=== PATIENT | female | born 1985 | race Caucasian/White ===

== ENCOUNTER 2017-06-17 12:49 | Emergency (ER) | payer OTHER ==
--- NOTE | 2017-06-17 13:10 | ED PDOC ---
HPI: Abdomen Time Seen by Provider: 06/17/17 13:01 Chief Complaint (Nursing): Abdominal Pain Chief Complaint (Provider): Abdominal Pain History Per: Patient History/Exam Limitations: no limitations Onset/Duration Of Symptoms: Days (x14) Current Symptoms Are (Timing): Still Present Additional Complaint(s): David Tony is a 31 year old female presenting to the ED for an evaluation of epigastric pain, burning intermittently occurring for 2 weeks prior to arrival. She denies nausea, vomiting, diarrhea, fever, or dysuria. PMD: Non H Provider Past Medical History Reviewed: Historical Data, Nursing Documentation, Vital Signs Vital Signs: Last Vital Signs Temp 99.0 F 06/17/17 12:54 Pulse 82 06/17/17 12:54 Resp 16 06/17/17 12:54 BP 120/71 06/17/17 12:54 Pulse Ox 100 06/17/17 13:12 - Medical History PMH: No Chronic Diseases - Family History Family History: States: Unknown Family Hx - Home Medications Home Medications: Ambulatory Orders Medication Instructions Recorded Famotidine [Pepcid] 20 mg PO Q12 #20 tab 06/17/17 - Allergies Allergies/Adverse Reactions: Allergies Allergy/AdvReac Type Severity Reaction Status Date / Time No Known Allergies Allergy Verified 06/17/17 12:59 Review of Systems ROS Statement: Except As Marked, All Systems Reviewed And Found Negative Constitutional: Negative for: Fever Gastrointestinal: Positive for: Abdominal Pain (epigastric pain burning intermittently). Negative for: Nausea, Vomiting, Diarrhea Genitourinary Female: Negative for: Dysuria Physical Exam - Reviewed Nursing Documentation Reviewed: Yes Vital Signs Reviewed: Yes - Physical Exam Appears: Positive for: Non-toxic, No Acute Distress Head Exam: Positive for: ATRAUMATIC, NORMOCEPHALIC Skin: Positive for: Normal Color, Warm, Dry Eye Exam: Positive for: Normal appearance, EOMI Neck: Positive for: Normal, Painless ROM Cardiovascular/Chest: Positive for: Regular Rate, Rhythm. Negative for: Murmur Respiratory: Positive for: Normal Breath Sounds. Negative for: Respiratory Distress Gastrointestinal/Abdominal: Positive for: Soft, Tenderness (mild epigastric tenderness; no lower abdominal tenderness ) Extremity: Positive for: Normal ROM (full ROM ). Negative for: Swelling Neurologic/Psych: Positive for: Alert, Oriented - Laboratory Results Result Diagrams: 06/17/17 13:38 06/17/17 13:38 - ECG O2 Sat by Pulse Oximetry: 100 (RA) Pulse Ox Interpretation: Normal Medical Decision Making Medical Decision Making: Time: 13:01 Impression: Abdominal Pain Plan: * CMP * CBC (With Differential) * Bentyl 10 mg PO * NS 1,000 ml IV 100 mls/hr * Pepcid 20 mg IVP * Reevaluation Scribe Attestation: Documented by Shanna Chadwick, acting as a scribe for Cedric Godinez MD. Provider Scribe Attestation: All medical record entries made by the Scribe were at my direction and personally dictated by me. I have reviewed the chart and agree that the record accurately reflects my personal performance of the history, physical exam, medical decision making, and the department course for this patient. I have also personally directed, reviewed, and agree with the discharge instructions and disposition. Disposition - Clinical Impression Clinical Impression: Gastritis - Patient ED Disposition Is Patient to be Admitted: No Counseled Patient/Family Regarding: Studies Performed, Diagnosis, Need For Followup, Rx Given - Disposition Referrals: [facility] [Outside] Disposition: Routine/Home Disposition Time: 14:25 Condition: FAIR Prescriptions: Famotidine [Pepcid] 20 mg PO Q12 #20 tab Instructions: Gastritis (ED) Forms: [employer] (Azeri)
[2017-06-17] MEDS: Sodium Chloride 0.9% 1,000 ML IV STA (13:30)
[2017-06-17 13:46] LABS: BASO % 0.3 % (0.0-2.0); EOS # 0.1 K/uL (0.0-0.7); EOS % 1.2 % (0.0-4.0); HEMATOCRIT 33.3 % (34.0-47.0); LYMPH # 2.2 K/uL (1.0-4.3); LYMPH % 33.5 % (20.0-40.0); MEAN CELL VOLUME 83.7 fl (81.0-99.0); MEAN CORPUSCULAR HEMOGLOBIN 27.4 pg (27.0-31.0); MEAN CORPUSCULAR HGB CONC 32.7 g/dL (33.0-37.0); MEAN PLATELET VOLUME 9.7 fl (7.2-11.7); MONO # 0.4 K/uL (0.0-0.8); MONO % 6.7 % (0.0-10.0); NEUT # 3.8 K/uL (1.8-7.0); NEUT % 58.3 % (50.0-75.0); RED CELL DISTRIBUTION WIDTH 14.8 % (11.5-14.5); WHITE BLOOD COUNT 6.5 K/uL (4.8-10.8)
[2017-06-17 13:51] LABS: ALB/GLOB RATIO 1.3 (1.0-2.1); ALKALINE PHOSPHATASE 38 U/L (38-126); ALT/SGPT 32 U/L (9-52); AST/SGOT 22 U/L (14-36); BILIRUBIN,TOTAL 1.1 mg/dl (0.2-1.3); BLOOD UREA NITROGEN 9 mg/dl (7-17); CALCIUM 9.2 mg/dL (8.4-10.2); CARBON DIOXIDE 21 mmol/L (22-30); CHLORIDE 107 mmol/L (98-107); GFR AFRICAN-AMERICAN > 60; GLUCOSE,RANDOM 109 mg/dL (65-105); POTASSIUM 4.1 MMOL/L (3.6-5.0); SODIUM 138 mmol/l (132-148); TOTAL PROTEIN 8.1 G/DL (6.3-8.2)
[2017-06-17 14:45] VITALS: BP 128/78; PULSE 78; RESP 19; TEMP 97.6; O2SAT 98
== END 2017-06-17 14:44 | disposition home or self-care (01) ==
LOC: H.ER 12:49
DX: K29.70 Gastritis, unspecified, without bleeding (principal)
CPT/HCPCS: 80053; 81025; 85025; 96374; 99282; J7040

== ENCOUNTER 2017-10-25 22:19 | Emergency (ER) | payer OTHER ==
[2017-10-25 22:28] VITALS: BP 156/77; PULSE 91; RESP 16; TEMP 98.5; O2SAT 100
[2017-10-25] MEDS ORDERED: Sodium Chloride 0.9% 1,000 ML IV STA (22:35)
[2017-10-25 23:13] LABS: BASO # 0.1 K/uL (0.0-0.2); BASO % 0.7 % (0.0-2.0); EOS # 0.2 K/uL (0.0-0.7); EOS % 1.9 % (0.0-4.0); HEMOGLOBIN 10.4 g/dL (12.0-16.0); LYMPH # 3.3 K/uL (1.0-4.3); LYMPH % 36.7 % (20.0-40.0); MEAN CELL VOLUME 83.6 fl (81.0-99.0); MEAN CORPUSCULAR HEMOGLOBIN 26.9 pg (27.0-31.0); MEAN CORPUSCULAR HGB CONC 32.2 g/dL (33.0-37.0); MEAN PLATELET VOLUME 9.6 fl (7.2-11.7); MONO # 0.6 K/uL (0.0-0.8); NEUT # 4.9 K/uL (1.8-7.0); NEUT % 53.7 % (50.0-75.0); RBC 3.87 Mil/uL (3.80-5.20); RED CELL DISTRIBUTION WIDTH 15.3 % (11.5-14.5)
[2017-10-25 23:19] LABS: SQUAMOUS EPITHIAL < 1 /hpf (0-5); URINE BACTERIA RARE (<OCC); URINE BILIRUBIN NEGATIVE (NEGATIVE); URINE BLOOD NEGATIVE (NEGATIVE); URINE CLARITY CLEAR (Clear); URINE COLOR COLORLESS (YELLOW); URINE GLUCOSE (UA) NEG (Normal); URINE LEUKOCYTE ESTERASE NEG Leu/uL (Negative); URINE NITRATE NEGATIVE (NEGATIVE); URINE PROTEIN NEGATIVE (NEGATIVE); URINE UROBILINOGEN 0.2-1.0 mg/dL (0.2-1.0)
[2017-10-25 23:22] LABS: ALB/GLOB RATIO 1.2 (1.0-2.1); ALBUMIN 4.3 g/dL (3.5-5.0); ALT/SGPT 34 U/L (9-52); AST/SGOT 18 U/L (14-36); BLOOD UREA NITROGEN 7 mg/dl (7-17); CALCIUM 9.7 mg/dL (8.4-10.2); GFR AFRICAN-AMERICAN > 60; GFR NON-AFRICAN AMERICAN > 60; LIPASE 106 U/L (23-300)
--- NOTE | 2017-10-26 00:07 | ED PDOC ---
HPI: Abdomen Time Seen by Provider: 10/25/17 22:29 Chief Complaint (Nursing): Abdominal Pain Chief Complaint (Provider): Abdominal Pain History Per: Patient History/Exam Limitations: no limitations Onset/Duration Of Symptoms: Intermittent Episodes, Other (x1 month) Outside of [place] travel?: No Current Symptoms Are (Timing): Still Present Location Of Pain/Discomfort: Epigastric Quality Of Discomfort: "Pain" Associated Symptoms: Loss Of Appetite. denies: Nausea, Vomiting, Diarrhea, Chest Pain Additional Complaint(s): 31 year old female presents to ED with complaints of intermittent epigastric pain x1 month and has no past medical history. Patient states that she saw her PCP a while ago and was prescribed a liquid medicine that helped. Notes that since the medication finished the pain became worse, and significantly increased in intensity today, prompting ED visit. (-) nausea, vomiting, diarrhea , fever, SOB, cough, urinary symptoms, or chest pain. (+) decreased appetite. Of note, patient states she is 2-3 days late for her menstrual cycle and has not done a home test. PCP: Dr. Roach Past Medical History Reviewed: Historical Data, Nursing Documentation, Vital Signs Vital Signs: Last Vital Signs Temp 98.5 F 10/25/17 22:25 Pulse 91 H 10/25/17 22:25 Resp 16 10/25/17 22:25 BP 156/77 H 10/25/17 22:25 Pulse Ox 100 10/26/17 00:49 - Medical History PMH: No Chronic Diseases - Surgical History Other surgeries: left ear surgery - Family History Family History: States: Unknown Family Hx - Social History Current smoker - smoking cessation education provided: No Ex-Smoker (has not smoked in the last 12 months): No Alcohol: None Drugs: Denies - Home Medications Home Medications: Ambulatory Orders Medication Instructions Recorded Famotidine [Pepcid] 20 mg PO Q12 #20 tab 06/17/17 Famotidine [Pepcid] 20 mg PO Q12 #14 tab 10/26/17 - Allergies Allergies/Adverse Reactions: Allergies Allergy/AdvReac Type Severity Reaction Status Date / Time No Known Allergies Allergy Verified 10/25/17 22:24 Review of Systems ROS Statement: Except As Marked, All Systems Reviewed And Found Negative Constitutional: Negative for: Fever Cardiovascular: Negative for: Chest Pain Gastrointestinal: Positive for: Abdominal Pain (epigastric pain), Other ((+) decreased appetite). Negative for: Nausea, Vomiting, Diarrhea Genitourinary Female: Negative for: Dysuria, Frequency, Incontinence, Hematuria Physical Exam - Reviewed Nursing Documentation Reviewed: Yes Vital Signs Reviewed: Yes - Physical Exam Appears: Positive for: Non-toxic, No Acute Distress Skin: Positive for: Normal Color, Warm, Dry Eye Exam: Positive for: Normal appearance ENT: Positive for: Normal ENT Inspection Cardiovascular/Chest: Positive for: Regular Rate, Rhythm Respiratory: Positive for: Normal Breath Sounds. Negative for: Respiratory Distress Gastrointestinal/Abdominal: Positive for: Soft, Tenderness (epigastric tenderness). Negative for: Normal Exam Back: Positive for: Normal Inspection Extremity: Positive for: Normal ROM. Negative for: Deformity Neurologic/Psych: Positive for: Alert, Oriented. Negative for: Motor/Sensory Deficits - Laboratory Results Result Diagrams: 10/25/17 23:08 10/25/17 23:08 - ECG O2 Sat by Pulse Oximetry: 100 (RA) Pulse Ox Interpretation: Normal Medical Decision Making Medical Decision Makin Initial impression: epigastric pain Initial plan: * Labs * Lipase * UPreg * NS IV * Pepcid 20mg IV * Toradol 15mg IV * UA * US ABDOMEN LIMITED * Re-eval 2250 UPreg: positive * BETA-HCG QUANT * US OB TRANSVAGINAL 0024 US ABD FINDINGS: Liver: Liver is unremarkable. There is hepatopedal flow in the main portal vein. Gallbladder: Gallbladder is partially distended with no stones, sludge or wall thickening. Common bile duct: Common bile duct measures 2 mm in diameter Pancreas: Pancreas is unremarkable. Right kidney: Right kidney is partially obscured by overlying bowel gas. Visualized portions unremarkable. Aorta: Visualized portions of the aorta and inferior vena cava are unremarkable. IMPRESSION: No gallstones or ductal dilatation Patient was not tender over the gallbladder 0037 US TRANSVAGINAL FINDINGS: Gestation: There is a small cystic structure in the endometrium. Gestational sac has mean diameter 2.7 mm. pole and yolk sac are not yet visible. Uterus: Uterus measures approximately 7.4 x 4.2 x 5.67 cm. Cervix measures approximately 4 cm in length. Endometrium is thickened and heterogeneous. Endometrium measures approximate 2.3 cm in width. Ovaries: Right ovary measures approximately 2.3 x 1.7 x 2.2 cm. Left ovary measures approximately 2.9 x 1.8 x 2.7 cm.There are multiple small follicles. There is intraovarian blood flow. Free fluid: There is no free fluid. IMPRESSION: Findings suggest intrauterine gestation too early to date Followup suggested to document development of a pole Labs reviewed, no clinically significant abnormalities. Patient reports improvement in symptoms and was informed of status. Patient was advised to follow up with [facility] and [facility] for care. Dx gastritis, abdominal pain, and Scribe Attestation: Documented by Berta Bolanos acting as a scribe for Gurwinder Roldan MD. Scribe Attestation: All medical record entries made by the Scribe were at my direction and personally dictated by me. I have reviewed the chart and agree that the record accurately reflects my personal performance of the history, physical exam, medical decision making, and the department course for this patient. I have also personally directed, reviewed, and agree with the discharge instructions and disposition. Disposition - Clinical Impression Clinical Impression: Abdominal pain during , Gastritis - Disposition Referrals: [facility] [Outside] Disposition: Routine/Home Disposition Time: 00:50 Condition: STABLE Prescriptions: Famotidine [Pepcid] 20 mg PO Q12 #14 tab Instructions: Gastritis (ED), Abdominal Pain in (ED) Forms: [employer] (Maltese) - POA Present On Arrival: None
--- NOTE | 2017-10-26 00:25 | US ---
EXAM: US Abdomen Limited, Right Upper Quadrant EXAM DATE/TIME: 10/25/2017 10:46 PM CLINICAL HISTORY: 31 years old, female; Pain; Abdominal pain; Epigastric; ; Additional info: Ruq study; patient is not NPO TECHNIQUE: Real-time ultrasound of the right upper quadrant with image documentation. COMPARISON: There are no prior studies for comparison. FINDINGS: Liver: Liver is unremarkable. There is hepatopedal flow in the main portal vein. Gallbladder: Gallbladder is partially distended with no stones, sludge or wall thickening. Common bile duct: Common bile duct measures 2 mm in diameter Pancreas: Pancreas is unremarkable. Right kidney: Right kidney is partially obscured by overlying bowel gas. Visualized portions unremarkable. Aorta: Visualized portions of the aorta and inferior vena cava are unremarkable. IMPRESSION: No gallstones or ductal dilatation Patient was not tender over the gallbladder
--- NOTE | 2017-10-26 00:37 | US ---
EXAM: US , Transvaginal EXAM DATE/TIME: 10/25/2017 10:51 PM CLINICAL HISTORY: 31 years old, female; Pain; Other: Abd pain; Gestational age or lmp: 09/22/17; ; Additional info: Abd pain in preg TECHNIQUE: Real-time transvaginal obstetrical ultrasound of the maternal pelvis and a first trimester with image documentation. Transvaginal imaging was used for better evaluation of the fetus and adnexa. COMPARISON: There are no prior studies for comparison. FINDINGS: Gestation: There is a small cystic structure in the endometrium. Gestational sac has mean diameter 2.7 mm. pole and yolk sac are not yet visible. Uterus: Uterus measures approximately 7.4 x 4.2 x 5.67 cm. Cervix measures approximately 4 cm in length. Endometrium is thickened and heterogeneous. Endometrium measures approximate 2.3 cm in width. Ovaries: Right ovary measures approximately 2.3 x 1.7 x 2.2 cm. Left ovary measures approximately 2.9 x 1.8 x 2.7 cm.There are multiple small follicles. There is intraovarian blood flow. Free fluid: There is no free fluid. IMPRESSION: Findings suggest intrauterine gestation too early to date Followup suggested to document development of a pole
== END 2017-10-26 01:16 | disposition home or self-care (01) ==
LOC: H.ER 22:19
DX: K29.70 Gastritis, unspecified, without bleeding (principal); R10.13 Epigastric pain; Z87.891 Personal history of nicotine dependence; Z33.1 Pregnant state, incidental
CPT/HCPCS: 76705; 76817; 80053; 81003; 81025; 83690; 84702; 85025; 99283; J7040

== ENCOUNTER 2018-01-16 12:03 | Inpatient (IN) | payer MEDICAID, SELFPAY ==
[2018-01-16 12:03] VITALS: BMI 23.6
[2018-01-16] MEDS ORDERED: Sodium Chloride 0.9% 1,000 ML IV STA (12:24)
--- NOTE | 2018-01-16 12:24 | ED PDOC ---
HPI: General Adult Time Seen by Provider: 01/16/18 12:18 Chief Complaint (Nursing): Abnormal Labs Chief Complaint (Provider): abnormal labs History Per: Patient Additional Complaint(s): 32-year-old female status post miscarriage one month ago presents with persistent vaginal bleeding ongoing for 1 month. [facility] and was told that her hemoglobin was low and she was instructed to come to ED. patient has been feeling dizzy and lightheaded for the past week. She denies any chest pain, shortness of breath or dyspnea on exertion. No fever or chills, no dysuria. PMD: Dr. Roach is [place] Past Medical History Reviewed: Historical Data, Nursing Documentation, Vital Signs Vital Signs: Last Vital Signs Temp 98.2 F 01/16/18 16:18 Pulse 74 01/16/18 16:18 Resp 16 01/16/18 16:18 BP 135/69 01/16/18 12:08 Pulse Ox 100 01/16/18 16:18 - Medical History PMH: No Chronic Diseases - Family History Family History: States: No Known Family Hx - Living Arrangements Living Arrangements: With Family - Social History Current smoker - smoking cessation education provided: No Alcohol: None Drugs: Denies - Home Medications Home Medications: Ambulatory Orders Medication Instructions Recorded No Known Home Med 01/16/18 - Allergies Allergies/Adverse Reactions: Allergies Allergy/AdvReac Type Severity Reaction Status Date / Time No Known Allergies Allergy Verified 12/17/17 05:07 Review of Systems ROS Statement: Except As Marked, All Systems Reviewed And Found Negative Constitutional: Negative for: Fever Cardiovascular: Negative for: Chest Pain Respiratory: Negative for: Shortness of Breath Gastrointestinal: Positive for: Abdominal Pain. Negative for: Nausea, Vomiting , Diarrhea Genitourinary Female: Positive for: Vaginal Bleeding, Pelvic Pain. Negative for : Dysuria Neurological: Positive for: Dizziness. Negative for: Headache Physical Exam - Reviewed Nursing Documentation Reviewed: Yes Vital Signs Reviewed: Yes - Physical Exam Appears: Positive for: Well, Non-toxic, No Acute Distress Skin: Negative for: Rash Eye Exam: Positive for: Normal appearance Cardiovascular/Chest: Positive for: Regular Rate, Rhythm Respiratory: Positive for: Normal Breath Sounds Gastrointestinal/Abdominal: Positive for: Soft. Negative for: Tenderness, Distended, Guarding, Rebound Pelvic Exam: Positive for: Other (mild bleeding noted from closed cervical os, no CMT) Extremity: Positive for: Normal ROM Neurologic/Psych: Positive for: Alert, Oriented - Laboratory Results Result Diagrams: 01/16/18 12:35 01/16/18 12:35 Urine POC: Negative Urine dip results: Positive for: Leukocyte Esterase (small), Blood (large). Negative for: Nitrate, Ketones, Glucose, Bilirubin, Protein - ECG Interpretation Of ECG: Sinus tachycardia 106 bpm, reviewed by PMD and ED attending O2 Sat by Pulse Oximetry: 100 Pulse Ox Interpretation: Normal - Other Rad TV US X-Ray: Read By Radiologist X-Ray Interpretation: see below CXR X-Ray: Interpreted by Me, Viewed By Me X-Ray Interpretation: no acute finding Medical Decision Making Medical Decision Makin32 year old female with vaginal bleeding Plan: Urine dip and test Beta quant CBC CMP PT/PTT CXR EKG IVF US: FINDINGS: UTERUS: Measures 5.2 x 6.1 x 9.1 cm. Normal in size and appearance. No fibroid or other mass lesion seen. ENDOMETRIUM: Measures 20.8 thickened irregular endometrium. Focal vascularity within the endometrial echo complex. No discrete gestational sac, yolk sac or pole identified. CERVIX : No cervical abnormality identified. RIGHT OVARY: Measures 2.5 x 2.9 x 3.2 cm. No solid mass. Normal flow. Simple cyst 1.9 x 2.4 x 2.4 cm, LEFT OVARY: Measures 1.2 x 1.3 x 2 cm. No solid mass. Normal flow. FREE FLUID: No significant free fluid noted. OTHER FINDINGS: None. IMPRESSION: Markedly thickened heterogeneous endometrium with focal areas of increased vascularity. Simple cyst right adnexa. Hemoglobin is 6.8 - 2 units packed red blood cells ordered along with type and cross. Patient consented for transfusion. UTI noted, 1 gram IV rocephin ordered Case was d/w [employer] condominium manager, Dr. Lynch, ordered and patient was admitted to Dr. Lynch's service. Patient is aware of and agrees with admission. Disposition - Clinical Impression Clinical Impression: Vaginal bleeding, Anemia - Patient ED Disposition Is Patient to be Admitted: Yes - Disposition Disposition Time: 13:58 Condition: FAIR - Pt Status Changed To: Hospital Disposition Of: Inpatient - Admit Certification Admit to Inpatient:: After my assessment, the patient will require hospitalization for at least two midnights. This is because of the severity of symptoms shown, intensity of services needed, and/or the medical risk in this patient being treated as an outpatient. - POA Present On Arrival: None Results - Lab Results Lab Results: 01/16/18 01/16/18 01/16/18 12:35 12:35 12:35 WBC 9.4 RBC 2.73 L Hgb 6.8 L Hct 21.1 L MCV 77.3 L D MCH 24.8 L MCHC 32.2 L RDW 18.5 H Plt Count 283 MPV 9.1 Neut % (Auto) 75.9 H Lymph % (Auto) 17.8 L Coleman % (Auto) 5.7 Eos % (Auto) 0.3 Baso % (Auto) 0.3 Neut # (Auto) 7.1 H Lymph # (Auto) 1.7 Coleman # (Auto) 0.5 Eos # (Auto) 0.0 Baso # (Auto) 0.0 PT 12.5 INR 1.1 APTT 31.9 Sodium 142 Potassium 3.9 Chloride 107 Carbon Dioxide 20 L Anion Gap 19 BUN 7 Creatinine 0.6 L Est GFR ( Amer) > 60 Est GFR (Non-Af Amer) > 60 Random Glucose 105 Calcium 9.4 Total Bilirubin 0.6 AST 30 ALT 33 Alkaline Phosphatase 46 Total Protein 8.6 H Albumin 4.5 Globulin 4.1 H Albumin/Globulin Ratio 1.1
[2018-01-16 13:16] LABS: BASO % 0.3 % (0.0-2.0); EOS % 0.3 % (0.0-4.0); HEMOGLOBIN 6.8 g/dL (12.0-16.0); LYMPH # 1.7 K/uL (1.0-4.3); LYMPH % 17.8 % (20.0-40.0); MEAN CELL VOLUME 77.3 fl (81.0-99.0); MEAN CORPUSCULAR HEMOGLOBIN 24.8 pg (27.0-31.0); MEAN CORPUSCULAR HGB CONC 32.2 g/dL (33.0-37.0); MEAN PLATELET VOLUME 9.1 fl (7.2-11.7); MONO # 0.5 K/uL (0.0-0.8); MONO % 5.7 % (0.0-10.0); NEUT # 7.1 K/uL (1.8-7.0); NEUT % 75.9 % (50.0-75.0); RBC 2.73 Mil/uL (3.80-5.20); RED CELL DISTRIBUTION WIDTH 18.5 % (11.5-14.5); WHITE BLOOD COUNT 9.4 K/uL (4.8-10.8)
[2018-01-16 13:27] LABS: ALB/GLOB RATIO 1.1 (1.0-2.1); ALBUMIN 4.5 g/dL (3.5-5.0); ALT/SGPT 33 U/L (9-52); AST/SGOT 30 U/L (14-36); BLOOD UREA NITROGEN 7 mg/dl (7-17); CALCIUM 9.4 mg/dL (8.4-10.2); GFR AFRICAN-AMERICAN > 60; GFR NON-AFRICAN AMERICAN > 60
[2018-01-16 13:46] LABS: INR 1.1 (0.9-1.2); PARTIAL THROMBOPLASTIN TIME 31.9 Seconds (25.6-37.1); PROTHROMBIN TIME 12.5 Seconds (9.8-13.1)
--- NOTE | 2018-01-16 14:48 | RAD ---
HISTORY: clearance COMPARISON: No prior. TECHNIQUE: Chest PA and lateral FINDINGS: LUNGS: No active pulmonary disease. PLEURA: No significant pleural effusion identified. No pneumothorax apparent. CARDIOVASCULAR: Normal. OSSEOUS STRUCTURES: No significant abnormalities. VISUALIZED UPPER ABDOMEN: Normal. OTHER FINDINGS: None. IMPRESSION: No active disease.
[2018-01-16 15:13] LABS: SQUAMOUS EPITHIAL 1 /hpf (0-5); URINE BACTERIA RARE (<OCC); URINE BILIRUBIN NEGATIVE (NEGATIVE); URINE BLOOD LARGE (NEGATIVE); URINE CLARITY CLEAR (Clear); URINE COLOR STRAW (YELLOW); URINE GLUCOSE (UA) NEG (Normal); URINE LEUKOCYTE ESTERASE MOD Leu/uL (Negative); URINE PROTEIN NEGATIVE (NEGATIVE); URINE UROBILINOGEN 0.2-1.0 mg/dL (0.2-1.0)
[2018-01-16] MEDS ORDERED: cefTRIAXone (Rocephin) 1 gm Inj ONE (16:05)
--- NOTE | 2018-01-16 16:14 | US ---
HISTORY: miscarriage 1 month ago, persistent bleeding COMPARISON: 10/25/2017, pelvic ultrasound TECHNIQUE: Transvaginal only. Real -time technique with 2D, duplex and color Doppler FINDINGS: UTERUS: Measures 5.2 x 6.1 x 9.1 cm. Normal in size and appearance. No fibroid or other mass lesion seen. ENDOMETRIUM: Measures 20.8 thickened irregular endometrium. Focal vascularity within the endometrial echo complex. No discrete gestational sac, yolk sac or pole identified. CERVIX: No cervical abnormality identified. RIGHT OVARY: Measures 2.5 x 2.9 x 3.2 cm. No solid mass. Normal flow. Simple cyst 1.9 x 2.4 x 2.4 cm LEFT OVARY: Measures 1.2 x 1.3 x 2 cm. No solid mass. Normal flow. FREE FLUID: No significant free fluid noted. OTHER FINDINGS: None. IMPRESSION: Markedly thickened heterogeneous endometrium with focal areas of increased vascularity. Simple cyst right adnexa.
[2018-01-16] MEDS ORDERED: Influenza Vaccine 18yr & older 0.5 ML/45 MCG SYR IM ONE (21:00)
--- NOTE | 2018-01-16 22:32 | CP.PCM.HP ---
History of Present Illness - History of Present Illness History of Present Illness: CC: vaginal bleeding HPI: 32 YO with hx of recent SAB @ approximately 11 wks IUP (by LMP 09/20/17 ). Since her SAB, pt states that she continued to have vaginal bleeding, initially the bleeding decreased but subsequently increased and has continued. Pt states that since the miscarriage, she has used approximately 4-5 pads a day , usually the pads are moderately soaked. Has occasional abdominal cramping pain , not in any pain currently. Denies chest pain, dyspnea, n/v/d/c, chills and fevers. No hx of bleeding disorders. ObHx: 2 full term, NVD GYNHx: regular menstruation, every month. PMH: denies SurgH: Surgery for L ear infection FH: denies SH: , denies ETOH, smoking and illicit drug use Meds: tylenol PRN Allergies: NKDA Present on Admission - Present on Admission Any Indicators Present on Admission: No Review of Systems - Constitutional Constitutional: absent: Chills, Headache - EENT Eyes: absent: Blurred Vision - Cardiovascular Cardiovascular: Palpitations (before admission ). absent: Chest Pain, Syncope - Respiratory Respiratory: absent: Cough, Dyspnea - Gastrointestinal Gastrointestinal: Abdominal Pain (abdominal soreness). absent: Constipation, Diarrhea - Neurological Neurological: absent: Dizziness, Headaches, Syncope - Hematologic/Lymphatic Hematologic: absent: Easy Bleeding Past Patient History - Infectious Disease Hx of Infectious Diseases: None - Past Medical History & Family History Past Medical History?: Yes - Past Social History Smoking Status: Never Smoked Alcohol: None Drugs: Denies Home Situation {Lives}: With Family - CARDIAC Hx Cardiac Disorders: No - PULMONARY Hx Respiratory Disorders: No - NEUROLOGICAL Hx Neurological Disorder: No - HEENT Hx HEENT Problems: No - RENAL Hx Chronic Kidney Disease: No Hx Dialysis: No - ENDOCRINE/METABOLIC Hx Endocrine Disorders: No - HEMATOLOGICAL/ONCOLOGICAL Hx Blood Disorders: No Hx AIDS: No Hx Human Immunodeficiency Virus (HIV): No - INTEGUMENTARY Hx Dermatological Problems: No - MUSCULOSKELETAL/RHEUMATOLOGICAL Hx Musculoskeletal Disorders: No Hx Falls: No - GASTROINTESTINAL Hx Gastrointestinal Disorders: No - GENITOURINARY/GYNECOLOGICAL Hx Genitourinary Disorders: No - PSYCHIATRIC Hx Psychophysiologic Disorder: No Hx Substance Use: No - SURGICAL HISTORY Hx Surgeries: Yes Other/Comment: LEFT EAR - ANESTHESIA Hx Anesthesia: Yes Hx Anesthesia Reactions: No Hx Malignant Hyperthermia: No Has any member of the family had a problem w/ anesthesia?: No Meds Allergies/Adverse Reactions: Allergies Allergy/AdvReac Type Severity Reaction Status Date / Time No Known Allergies Allergy Verified 12/17/17 05:07 Physical Exam - Constitutional Appears: Well, Non-toxic, No Acute Distress - Head Exam Head Exam: ATRAUMATIC, NORMOCEPHALIC Additional comments: Looks mildly pale - Eye Exam Eye Exam: EOMI - ENT Exam ENT Exam: Mucous Membranes Moist - Respiratory Exam Respiratory Exam: Clear to Auscultation Bilateral, NORMAL BREATHING PATTERN - Cardiovascular Exam Cardiovascular Exam: REGULAR RHYTHM, +S1, +S2. absent: Tachycardia - GI/Abdominal Exam GI & Abdominal Exam: Normal Bowel Sounds, Soft. absent: Tenderness Additional comments: Uterus is below the Umbilicus; NT, firm. - Exam External exam: NORMAL EXTERNAL EXAM Bimanual exam: NORMAL BIMANUAL EXAM. absent: Adenexal Mass, Cervical Motion Tendernes, Uterine Tenderness Additional comments: Cervix is closed - Extremities Exam Extremities exam: Positive for: full ROM, normal inspection. Negative for: pedal edema - Neurological Exam Neurological exam: Alert, CN II-XII Intact, Oriented x3 - Psychiatric Exam Psychiatric exam: Normal Affect, Normal Mood - Skin Skin Exam: Dry, Intact, Normal Color, Warm Results - Vital Signs Recent Vital Signs: Last Vital Signs Temp 98.8 F 01/16/18 19:35 Pulse 82 01/16/18 20:36 Resp 20 01/16/18 19:35 BP 108/70 01/16/18 19:35 Pulse Ox 100 01/16/18 19:35 - Labs Result Diagrams: 01/16/18 12:35 01/16/18 12:35 Labs: Laboratory Results - last 24 hr 01/16/18 01/16/18 01/16/18 12:35 12:35 12:35 WBC 9.4 RBC 2.73 L Hgb 6.8 L Hct 21.1 L MCV 77.3 L D MCH 24.8 L MCHC 32.2 L RDW 18.5 H Plt Count 283 MPV 9.1 Neut % (Auto) 75.9 H Lymph % (Auto) 17.8 L [place] % (Auto) 5.7 Eos % (Auto) 0.3 Baso % (Auto) 0.3 Neut # (Auto) 7.1 H Lymph # (Auto) 1.7 [place] # (Auto) 0.5 Eos # (Auto) 0.0 Baso # (Auto) 0.0 PT 12.5 INR 1.1 APTT 31.9 Sodium 142 Potassium 3.9 Chloride 107 Carbon Dioxide 20 L Anion Gap 19 BUN 7 Creatinine 0.6 L Est GFR ( Amer) > 60 Est GFR (Non-Af Amer) > 60 Random Glucose 105 Calcium 9.4 Total Bilirubin 0.6 AST 30 ALT 33 Alkaline Phosphatase 46 Total Protein 8.6 H Albumin 4.5 Globulin 4.1 H Albumin/Globulin Ratio 1.1 Beta HCG, Quant Urine Color Urine Clarity Urine pH Ur Specific [employer] Urine Protein Urine Glucose (UA) Urine Ketones Urine Blood Urine Nitrate Urine Bilirubin Urine Urobilinogen Ur Leukocyte Esterase Urine RBC (Auto) Urine Microscopic WBC Ur Squamous Epith Cells Urine Bacteria Blood Type Antibody Screen Crossmatch BBK History Checked 01/16/18 01/16/18 01/16/18 14:04 14:31 14:45 WBC RBC Hgb Hct MCV MCH MCHC RDW Plt Count MPV Neut % (Auto) Lymph % (Auto) [place] % (Auto) Eos % (Auto) Baso % (Auto) Neut # (Auto) Lymph # (Auto) [place] # (Auto) Eos # (Auto) Baso # (Auto) PT INR APTT Sodium Potassium Chloride Carbon Dioxide Anion Gap BUN Creatinine Est GFR ( Amer) Est GFR (Non-Af Amer) Random Glucose Calcium Total Bilirubin AST ALT Alkaline Phosphatase Total Protein Albumin Globulin Albumin/Globulin Ratio Beta HCG, Quant 43.63 Urine Color Straw Urine Clarity Clear Urine pH 6.0 Ur Specific [employer] 1.008 Urine Protein Negative Urine Glucose (UA) Neg Urine Ketones Negative Urine Blood Large Urine Nitrate Negative Urine Bilirubin Negative Urine Urobilinogen 0.2-1.0 Ur Leukocyte Esterase Mod Urine RBC (Auto) 178 H Urine Microscopic WBC 17 H Ur Squamous Epith Cells 1 Urine Bacteria Rare Blood Type A POSITIVE Antibody Screen Negative Crossmatch See Detail BBK History Checked Patient has bt - EKG Data EKG Interpreted by: Myself EKG shows normal: Sinus rhythm Rate: Tachycardia (Rate 106; sinus tachycardia ) - Imaging and Cardiology US - abdomen Additional comment: Transvaginal US: UTERUS: Measures 5.2 x 6.1 x 9.1 cm. Normal in size and appearance. No fibroid or other mass lesion seen. ENDOMETRIUM: Measures 20.8 thickened irregular endometrium. Focal vascularity within the endometrial echo complex. No discrete gestational sac, yolk sac or pole identified. CERVIX:No cervical abnormality identified. RIGHT OVARY: Measures 2.5 x 2.9 x 3.2 cm. No solid mass. Normal flow. Simple cyst 1.9 x 2.4 x 2.4 cm, LEFT OVARY: Measures 1.2 x 1.3 x 2 cm. No solid mass. Normal flow. FREE FLUID: No significant free fluid noted. IMPRESSION: Markedly thickened heterogeneous endometrium with focal areas of increased vascularity. Simple cyst right adnexa. Assessment & Plan - Assessment and Plan (Free Text) Assessment: 32 YO with no hx of recent SAB @ approximately 11 wks IUP is admitted for vaginal bleeding and symptomatic anemia. Vaginal bleeding, symptomatic anemia -acute symptomatic anemia likely 2/2 to persistent vaginal bleeding -hb/hct 6.8/21.1; coags wnl -transfuse 2 units of PRBC -repeat cbc in AM; post transfusion -U/s sig for Markedly thickened heterogeneous endometrium with focal areas of increased vascularity; endometrium is 20.8 thickened and irregular -cervix is closed in exam, no trauma noted -cytotec 200mg PO -reassess in AM; pt may need dilation and curettage if vaginal bleeding persists. -NPO after midnight -IVF; LR @ 125ml -Pain management: Tylenol Pt discussed with Dr. Lynch
[2018-01-17] MEDS: Lactated Ringer's 1,000 ML IV SCH ×2 (03:00→08:01)
[2018-01-17 05:53] LABS: BASO % 0.4 % (0.0-2.0); EOS % 0.3 % (0.0-4.0); HEMOGLOBIN 8.4 g/dL (12.0-16.0); LYMPH # 1.9 K/uL (1.0-4.3); LYMPH % 21.2 % (20.0-40.0); MEAN CELL VOLUME 79.7 fl (81.0-99.0); MEAN CORPUSCULAR HEMOGLOBIN 25.9 pg (27.0-31.0); MEAN CORPUSCULAR HGB CONC 32.6 g/dL (33.0-37.0); MONO # 0.7 K/uL (0.0-0.8); MONO % 7.2 % (0.0-10.0); NEUT # 6.5 K/uL (1.8-7.0); NEUT % 70.9 % (50.0-75.0); NRBC % 0.1 % (0.0-0.0); RBC 3.25 Mil/uL (3.80-5.20); RED CELL DISTRIBUTION WIDTH 17.7 % (11.5-14.5); WHITE BLOOD COUNT 9.1 K/uL (4.8-10.8)
--- NOTE | 2018-01-17 06:49 | CP.PCM.PN ---
Subjective - Date & Time of Evaluation Date of Evaluation: 01/17/18 Time of Evaluation: 06:47 - Subjective Subjective: 32 YO ; s/p SAB @ 11.2wks (12/22/17) with vaginal bleeding and symptomatic anemia. S/p 2 units of PRBC transfusion overnight. Pt continues to have vaginal bleeding but decreased in volume since admission. No abdominal pain currently. Denies n/v/d/c and remains afebrile. VS stable, tachycardia resolved. Objective - Vital Signs/Intake and Output Vital Signs (last 24 hours): Temp Pulse Resp BP Pulse Ox 99.4 F 88 18 108/68 99 01/17/18 05:07 01/17/18 05:07 01/17/18 05:07 01/17/18 05:07 01/17/18 05:07 - Medications Medications: Current Medications Acetaminophen (Tylenol 325mg Tab) 325 mg PO Q6 PRN PRN Reason: Pain, Mild (1-3) Lactated Ringer's (Lactated Ringer's) 1,000 mls @ 125 mls/hr IV .Q8H ADRIANA Last Admin: 01/17/18 03:00 Dose: 125 mls/hr - Labs Labs: 01/17/18 05:10 01/16/18 12:35 PT 12.5 Seconds (9.8-13.1) 01/16/18 12:35 INR 1.1 (0.9-1.2) 01/16/18 12:35 APTT 31.9 Seconds (25.6-37.1) 01/16/18 12:35 - Constitutional Appears: No Acute Distress - Head Exam Head Exam: ATRAUMATIC, NORMOCEPHALIC - Eye Exam Eye Exam: EOMI, Normal appearance - ENT Exam ENT Exam: Mucous Membranes Moist - Respiratory Exam Respiratory Exam: Clear to Ausculation Bilateral, NORMAL BREATHING PATTERN - Cardiovascular Exam Cardiovascular Exam: REGULAR RHYTHM, +S1, +S2. absent: Tachycardia - GI/Abdominal Exam GI & Abdominal Exam: Soft, Normal Bowel Sounds. absent: Tenderness - Extremities Exam Extremities Exam: Full ROM, Normal Inspection. absent: Calf Tenderness - Neurological Exam Neurological Exam: Alert, Awake, Oriented x3 - Skin Skin Exam: Dry, Intact, Normal Color, Warm Assessment and Plan - Assessment and Plan (Free Text) Assessment: 32 YO with hx of recent SAB @ approximately 11 wks IUP is admitted for vaginal bleeding and symptomatic anemia. Vaginal bleeding, symptomatic anemia -acute symptomatic anemia likely 2/2 to persistent vaginal bleeding -s/p transfuse 2 units of PRBC -hb/hct 6.8/21.1; post transfusion hb/hct 8.4/25.9 coags wnl -U/s sig for Markedly thickened heterogeneous endometrium with focal areas of increased vascularity; endometrium is 20.8 thickened and irregular -cervix is closed in exam, no trauma noted -s/p cytotec 200mg PO -reassess later today; pt may need dilation and curettage if vaginal bleeding persists. -keep NPO -IVF; LR @ 125ml -Pain management: Tylenol
[2018-01-17 08:22] VITALS: RESP 20
[2018-01-17 12:12] VITALS: BP 114/71; PULSE 88; TEMP 99.1; O2SAT 99
--- NOTE | 2018-01-17 14:12 | CP.PCM.PN ---
Subjective - Date & Time of Evaluation Date of Evaluation: 01/17/18 Time of Evaluation: 14:08 - Subjective Subjective: Patient is a 32 s/p complete , s/p misoprostol insetion and transfusion of 2 units of blood for symptomatic anemia. Patient denies dizziness, LOC, [place], N /V, abdominal pain, continues to have mild spotting but otherwise bleeding has slowed down considerably. Objective - Vital Signs/Intake and Output Vital Signs (last 24 hours): Temp Pulse Resp BP Pulse Ox 99.1 F 88 20 114/71 99 01/17/18 12:12 01/17/18 12:12 01/17/18 12:12 01/17/18 12:12 01/17/18 12:12 - Medications Medications: Current Medications Acetaminophen (Tylenol 325mg Tab) 325 mg PO Q6 PRN PRN Reason: Pain, Mild (1-3) Lactated Ringer's (Lactated Ringer's) 1,000 mls @ 125 mls/hr IV .Q8H ADRIANA Last Admin: 01/17/18 08:01 Dose: 125 mls/hr - Labs Labs: 01/17/18 05:10 01/16/18 12:35 PT 12.5 Seconds (9.8-13.1) 01/16/18 12:35 INR 1.1 (0.9-1.2) 01/16/18 12:35 APTT 31.9 Seconds (25.6-37.1) 01/16/18 12:35 - Head Exam Head Exam: ATRAUMATIC - Respiratory Exam Respiratory Exam: NORMAL BREATHING PATTERN - Cardiovascular Exam Cardiovascular Exam: REGULAR RHYTHM - GI/Abdominal Exam GI & Abdominal Exam: Normal Bowel Sounds - Extremities Exam Extremities Exam: Normal Inspection Assessment and Plan - Assessment and Plan (Free Text) Assessment: A/P Patient 32yo s/p 2 RBCS and misoprostol following a Complete 1. Patient recovering well, bleeding has slowed down considerably. Hgb now 8.4 and vitals have improved, pt asyptomatic. 2. Discharge patient home, bleeding precautions, f/u with clinic in 1-2 weeks
--- NOTE | 2018-01-17 18:14 | CARD ---
APPROVED REPORT EKG Measurement Heart [id number] <Conclusion> Sinus tachycardia Otherwise normal ECG
== END 2018-01-17 16:00 | disposition home or self-care (01) | DRG 812 ==
LOC: H.ER 12:03 → H.ERHOLD 13:46 → H.TEL 17:19
PROVIDERS: ADMIT Obstetrics & Gynecology; ATTEND Obstetrics & Gynecology
PROC: 30233N1 Transfusion of Nonautologous Red Blood Cells into Peripheral Vein, Percutaneous Approach (ICD-10-PCS; principal; 2018-01-16)
PROC: 3E0234Z Introduction of Serum, Toxoid and Vaccine into Muscle, Percutaneous Approach (ICD-10-PCS; 2018-01-17)
DX: D62 Acute posthemorrhagic anemia (principal); N39.0 Urinary tract infection, site not specified; Z23 Encounter for immunization; N93.9 Abnormal uterine and vaginal bleeding, unspecified

== ENCOUNTER 2018-01-21 17:03 | Inpatient (IN) | payer MEDICAID, SELFPAY ==
[2018-01-21 17:03] VITALS: BMI 23.6
[2018-01-21 17:24] VITALS: O2SAT 100
--- NOTE | 2018-01-21 20:01 | ED PDOC ---
HPI: Female Pain Time Seen by Provider: 01/21/18 19:16 Chief Complaint (Nursing): Female Genitourinary History Per: Patient History/Exam Limitations: no limitations Onset/Duration Of Symptoms: Days Current Symptoms Are (Timing): Still Present Severity: Moderate Additional Complaint(s): s/p miscarriage on 12/12 p/w VB, states that she was transfused once prior for similar. States that for the past month she has had small amounts of VB but today had increased VB to 4 pads, but denies pain currently. States she has been increasingly tired and also occasionally SOB. Past Medical History Reviewed: Historical Data, Nursing Documentation, Vital Signs Vital Signs: Last Vital Signs Temp 98.3 F 01/21/18 17:18 Pulse 92 H 01/21/18 17:18 Resp 18 01/21/18 17:18 BP 132/85 01/21/18 17:18 Pulse Ox 100 01/21/18 17:18 - Medical History PMH: Denies: HIV, Chronic Kidney Disease - Family History Family History: States: Unknown Family Hx - Immunization History Hx Tetanus Toxoid Vaccination: No Hx Influenza Vaccination: No Hx Pneumococcal Vaccination: No - Home Medications Home Medications: Ambulatory Orders Medication Instructions Recorded No Known Home Med 01/16/18 - Allergies Allergies/Adverse Reactions: Allergies Allergy/AdvReac Type Severity Reaction Status Date / Time No Known Allergies Allergy Verified 01/21/18 17:18 Review of Systems ROS Statement: Except As Marked, All Systems Reviewed And Found Negative Constitutional: Positive for: Malaise Respiratory: Positive for: Shortness of Breath Genitourinary Female: Positive for: Vaginal Bleeding Physical Exam - Reviewed Nursing Documentation Reviewed: Yes Vital Signs Reviewed: Yes - Physical Exam Appears: Positive for: Well, Non-toxic, No Acute Distress Head Exam: Positive for: ATRAUMATIC, NORMAL INSPECTION, NORMOCEPHALIC Skin: Positive for: Normal Color, Warm, DRY Eye Exam: Positive for: EOMI, Normal appearance, PERRL ENT: Positive for: Normal ENT Inspection Neck: Positive for: Normal, Painless ROM Cardiovascular/Chest: Positive for: Regular Rate, Rhythm Respiratory: Positive for: CNT, Normal Breath Sounds Gastrointestinal/Abdominal: Positive for: Normal Exam, Soft Pelvic Exam: Positive for: Active Bleeding, Other (Cervix Fingertip(EDT Eve at bedside during exam)). Negative for: No Cerv. Motion Tender, No Masses, Tender Adnexa, Tender Uterus Back: Positive for: Normal Inspection Extremity: Positive for: Normal ROM Neurologic/Psych: Positive for: Alert, Oriented - Laboratory Results Result Diagrams: 01/21/18 20:25 01/21/18 20:25 - ECG O2 Sat by Pulse Oximetry: 100 Medical Decision Making Medical Decision Makin A/P: Hx of recent anemia s/p miscarriage and transfusion p/w VB and increased tiredness -will get CBC to assess current Hgb -will get repeat TV US to compare to last U/S -re-eval 0000EXAM: US Pelvis, Transvaginal CLINICAL HISTORY: 32 years old, female; Signs and symptoms; Other: Bleeding on/off since 12/29; Additional info: Continued vb, S/P miscarriage 12/12 TECHNIQUE: Real-time transvaginal pelvic ultrasound (complete) with image documentation. Transvaginal imaging was used for better evaluation of the endometrium and adnexa. COMPARISON: No relevant prior studies available. FINDINGS: Uterus/cervix: Unremarkable measuring 9.2 x 4.7 x 5.5 cm. No myometrial mass. The endometrial cavity is thickened and heterogeneous with vascularity demonstrated with color Doppler measuring 1.6 cm. Right ovary: Unremarkable measuring 2.9 x 1.6 x 3.2 cm. No mass. Normal blood flow. Left ovary: Unremarkable measuring 2.6 x 1.6 x 2.6 cm. No mass. Normal blood flow. Free fluid: No free fluid. Bladder: Empty bladder which cannot be evaluated with this probe. IMPRESSION: Thickened, heterogeneous endometrial cavity with vascularity. In the correct clinical setting, retained products of conception should be a diagnostic consideration. Clinical correlation recommended. No ovarian torsion. Thank you for allowing us to participate in the care of your patient. Dictated and Authenticated by: Isabel Arciniega MD 01/21/2018 10:25 PM Eastern Time ([place] & [place]) Patient seen at bedside by Dr. Valle, will admit patient for D&C for incomplete AB. Disposition - Clinical Impression Clinical Impression: Incomplete - Disposition Disposition Time: 00:00 Condition: FAIR Forms: [employer] (Frisian)
[2018-01-21 20:40] LABS: HEMOGLOBIN 9.6 g/dL (12.0-16.0); MEAN CELL VOLUME 78.5 fl (81.0-99.0); MEAN CORPUSCULAR HEMOGLOBIN 25.4 pg (27.0-31.0); MEAN CORPUSCULAR HGB CONC 32.3 g/dL (33.0-37.0); RBC 3.79 Mil/uL (3.80-5.20); RED CELL DISTRIBUTION WIDTH 18.2 % (11.5-14.5); WHITE BLOOD COUNT 8.5 K/uL (4.8-10.8)
[2018-01-21 20:44] LABS: SQUAMOUS EPITHIAL < 1 /hpf (0-5); URINE BACTERIA RARE (<OCC); URINE BILIRUBIN NEGATIVE (NEGATIVE); URINE BLOOD LARGE (NEGATIVE); URINE CLARITY CLEAR (Clear); URINE COLOR COLORLESS (YELLOW); URINE GLUCOSE (UA) NEG (Normal); URINE LEUKOCYTE ESTERASE SMALL Leu/uL (Negative); URINE PROTEIN NEGATIVE (NEGATIVE); URINE UROBILINOGEN 0.2-1.0 mg/dL (0.2-1.0)
[2018-01-21 20:57] LABS: INR 1.1 (0.9-1.2); PARTIAL THROMBOPLASTIN TIME 30.2 Seconds (25.6-37.1); PROTHROMBIN TIME 12.1 Seconds (9.8-13.1)
[2018-01-21 21:03] LABS: BLOOD UREA NITROGEN 10 mg/dl (7-17); CALCIUM 9.6 mg/dL (8.4-10.2); GFR AFRICAN-AMERICAN > 60; GFR NON-AFRICAN AMERICAN > 60
--- NOTE | 2018-01-21 22:25 | US ---
EXAM: US Pelvis, Transvaginal CLINICAL HISTORY: 32 years old, female; Signs and symptoms; Other: Bleeding on/off since 12/29; Additional info: Continued vb, S/P miscarriage 12/12 TECHNIQUE: Real-time transvaginal pelvic ultrasound (complete) with image documentation. Transvaginal imaging was used for better evaluation of the endometrium and adnexa. COMPARISON: No relevant prior studies available. FINDINGS: Uterus/cervix: Unremarkable measuring 9.2 x 4.7 x 5.5 cm. No myometrial mass. The endometrial cavity is thickened and heterogeneous with vascularity demonstrated with color Doppler measuring 1.6 cm. Right ovary: Unremarkable measuring 2.9 x 1.6 x 3.2 cm. No mass. Normal blood flow. Left ovary: Unremarkable measuring 2.6 x 1.6 x 2.6 cm. No mass. Normal blood flow. Free fluid: No free fluid. Bladder: Empty bladder which cannot be evaluated with this probe. IMPRESSION: Thickened, heterogeneous endometrial cavity with vascularity. In the correct clinical setting, retained products of conception should be a diagnostic consideration. Clinical correlation recommended. No ovarian torsion.
[2018-01-22 00:44] LABS: HEMOGLOBIN 9.8 g/dL (12.0-16.0); MEAN CELL VOLUME 78.8 fl (81.0-99.0); MEAN CORPUSCULAR HEMOGLOBIN 25.3 pg (27.0-31.0); MEAN CORPUSCULAR HGB CONC 32.1 g/dL (33.0-37.0); RBC 3.88 Mil/uL (3.80-5.20); RED CELL DISTRIBUTION WIDTH 18.1 % (11.5-14.5); WHITE BLOOD COUNT 9.2 K/uL (4.8-10.8)
--- NOTE | 2018-01-22 01:03 | CP.PCM.HP ---
<Makenna Ledbetter - Last Filed: 01/22/18 01:47> History of Present Illness - History of Present Illness History of Present Illness: CC: vaginal bleeding HPI: 32 YO with hx of recent SAB @ approximately 11 wks IUP (by LMP 09/20/17 ). Since her SAB, pt states that she continued to have vaginal bleeding; hx of recent admission to the hospital, s/p cytotech with improvement of the VB but bleeding returned 12 hrs after d/c. Pt states that since the miscarriage, she has used approximately 4-5 pads a day, usually the pads are moderately soaked. Today, pt reports using 5 pads thus far. Has occasional abdominal pain, cramping in nature. Endorsing feeling tired and fatigue. Denies chest pain, dyspnea, n/v/d/c, chills and fevers. No hx of bleeding disorders. OBMD: Dr. Grijalva ObHx: 2 full term, NVD (2006 and 2010) GYNHx: regular menstruation, every month. PMH: denies SurgH: Surgery for L ear infection FH: denies SH: , denies ETOH, smoking and illicit drug use Meds: tylenol PRN Allergies: NKDA Present on Admission - Present on Admission Any Indicators Present on Admission: No Review of Systems - Constitutional Constitutional: Weakness. absent: Chills, Headache - EENT Eyes: absent: Blurred Vision, Change in Vision - Cardiovascular Cardiovascular: absent: Chest Pain, Dyspnea, Palpitations - Respiratory Respiratory: absent: Cough, Dyspnea - Gastrointestinal Gastrointestinal: Abdominal Pain (occasional pain, not right now ). absent: Constipation, Diarrhea, Nausea, Vomiting - Genitourinary Genitourinary: absent: Dysuria, Urinary Frequency - Reproductive: Female Reproductive:Female: Normal Menses, Abnormal Vaginal Bleeding. absent: Dysmenorrhea - Musculoskeletal Musculoskeletal: absent: Muscle Weakness, Myalgias - Neurological Neurological: Weakness. absent: Headaches, Syncope - Psychiatric Psychiatric: absent: Anxiety Past Patient History - Infectious Disease Hx of Infectious Diseases: None ( ) - Past Medical History & Family History Past Medical History?: Yes - Past Social History Smoking Status: Never Smoked Alcohol: None Drugs: Denies Home Situation {Lives}: With Family - CARDIAC Hx Cardiac Disorders: No - PULMONARY Hx Respiratory Disorders: No - NEUROLOGICAL Hx Neurological Disorder: No - HEENT Hx HEENT Problems: No - RENAL Hx Chronic Kidney Disease: No - ENDOCRINE/METABOLIC Hx Endocrine Disorders: No - HEMATOLOGICAL/ONCOLOGICAL Hx Human Immunodeficiency Virus (HIV): No - INTEGUMENTARY Hx Dermatological Problems: No - MUSCULOSKELETAL/RHEUMATOLOGICAL Hx Musculoskeletal Disorders: No Hx Falls: No - GASTROINTESTINAL Hx Gastrointestinal Disorders: No - GENITOURINARY/GYNECOLOGICAL Hx Genitourinary Disorders: No - PSYCHIATRIC Hx Psychophysiologic Disorder: No Hx Substance Use: No - SURGICAL HISTORY Hx Surgeries: Yes Other/Comment: LEFT EAR - ANESTHESIA Hx Malignant Hyperthermia: No Meds Allergies/Adverse Reactions: Allergies Allergy/AdvReac Type Severity Reaction Status Date / Time No Known Allergies Allergy Verified 01/21/18 17:18 Physical Exam - Constitutional Appears: No Acute Distress - Head Exam Head Exam: ATRAUMATIC, NORMOCEPHALIC - Eye Exam Eye Exam: EOMI, Normal appearance - ENT Exam ENT Exam: Mucous Membranes Moist - Respiratory Exam Respiratory Exam: Clear to Auscultation Bilateral, NORMAL BREATHING PATTERN - Cardiovascular Exam Cardiovascular Exam: REGULAR RHYTHM, +S1, +S2. absent: Systolic Murmur - GI/Abdominal Exam GI & Abdominal Exam: Normal Bowel Sounds, Soft. absent: Distended, Guarding, Tenderness - Exam Speculum exam: Cervical Discharge (brown/blood noted in the vaginal canal. Tissue noted in the cervix. ), Tissue, Vaginal Bleeding - Extremities Exam Extremities exam: Positive for: full ROM, normal inspection. Negative for: calf tenderness, pedal edema - Neurological Exam Neurological exam: Alert, Oriented x3 - Psychiatric Exam Psychiatric exam: Normal Affect, Normal Mood - Skin Skin Exam: Dry, Intact, Normal Color, Warm Results - Vital Signs Recent Vital Signs: Last Vital Signs Temp 98 F 01/22/18 00:44 Pulse 85 01/22/18 00:44 Resp 18 01/22/18 00:44 BP 126/74 01/22/18 00:44 Pulse Ox 100 01/22/18 00:44 - Labs Result Diagrams: 01/22/18 00:32 01/21/18 20:25 Labs: Laboratory Results - last 24 hr 01/21/18 01/21/18 01/21/18 20:25 20:25 20:25 WBC 8.5 RBC 3.79 L Hgb 9.6 L Hct 29.8 L MCV 78.5 L MCH 25.4 L MCHC 32.3 L RDW 18.2 H Plt Count 346 D PT INR APTT Sodium 144 Potassium 3.9 Chloride 104 Carbon Dioxide 22 Anion Gap 22 H BUN 10 Creatinine 0.5 L Est GFR ( Amer) > 60 Est GFR (Non-Af Amer) > 60 Random Glucose 103 Calcium 9.6 Beta HCG, Quant 4.83 Urine Color Urine Clarity Urine pH Ur Specific [place] Urine Protein Urine Glucose (UA) Urine Ketones Urine Blood Urine Nitrate Urine Bilirubin Urine Urobilinogen Ur Leukocyte Esterase Urine RBC (Auto) Urine Microscopic WBC Ur Squamous Epith Cells Urine Bacteria Blood Type Antibody Screen BBK History Checked 01/21/18 01/21/18 01/21/18 20:25 20:25 20:25 WBC RBC Hgb Hct MCV MCH MCHC RDW Plt Count PT 12.1 INR 1.1 APTT 30.2 Sodium Potassium Chloride Carbon Dioxide Anion Gap BUN Creatinine Est GFR ( Amer) Est GFR (Non-Af Amer) Random Glucose Calcium Beta HCG, Quant Urine Color Colorless Urine Clarity Clear Urine pH 7.0 Ur Specific [place] < 1.005 Urine Protein Negative Urine Glucose (UA) Neg Urine Ketones Negative Urine Blood Large Urine Nitrate Negative Urine Bilirubin Negative Urine Urobilinogen 0.2-1.0 Ur Leukocyte Esterase Small Urine RBC (Auto) 2 Urine Microscopic WBC 1 Ur Squamous Epith Cells < 1 Urine Bacteria Rare Blood Type A POSITIVE Antibody Screen Negative BBK History Checked Patient has bt - Imaging and Cardiology US - abdomen Additional comment: Transvaginal US 12/17/17: UTERUS: Measures 5.2 x 6.1 x 9.1 cm. Normal in size and appearance. No fibroid or other mass lesion seen. ENDOMETRIUM: Measures 20.8 thickened irregular endometrium. Focal vascularity within the endometrial echo complex. No discrete gestational sac, yolk sac or pole identified. CERVIX:No cervical abnormality identified. RIGHT OVARY: Measures 2.5 x 2.9 x 3.2 cm. No solid mass. Normal flow. Simple cyst 1.9 x 2.4 x 2.4 cm, LEFT OVARY: Measures 1.2 x 1.3 x 2 cm. No solid mass. Normal flow. FREE FLUID: No significant free fluid noted. IMPRESSION: Markedly thickened heterogeneous endometrium with focal areas of increased vascularity. Simple cyst right adnexa. Transvaginal US 12/21/17: IMPRESSION: Thickened, heterogeneous endometrial cavity with vascularity. In the correct clinical setting, retained products of conception should be a diagnostic consideration. Clinical correlation recommended. No ovarian torsion. Assessment & Plan - Assessment and Plan (Free Text) Assessment: Assessment/Plan: 32 YO with hx of recent SAB @ approximately 11 wks IUP is admitted for vaginal bleeding due to IAB. Vaginal bleeding -likely 2/2 to Incomplete -Transvaginal u/s: Thickened, heterogeneous endometrial cavity with vascularity likely retained products of conception -BHCG 4.83 -s/p 2 units of PRBC transfusion on 12/17/17 -hb/hct 9.8/30.5 stable; coags wnl -Pt consented for D&C in the AM. Risks are reviewed with patient, she understands and agrees with plan and need for dilation and curettage. -NPO -IVF; LR @ 125ml -Ancef before OR in AM -type and screen, cbc in AM Pt discussed with Dr. Sun <Jarek Sun - Last Filed: 01/22/18 07:47> Results - Vital Signs Recent Vital Signs: Last Vital Signs Temp 98.7 F 01/22/18 01:30 Pulse 86 01/22/18 01:30 Resp 18 01/22/18 01:30 BP 116/71 01/22/18 01:30 Pulse Ox 100 01/22/18 01:30 - Labs Result Diagrams: 01/22/18 04:00 01/21/18 20:25 Labs: Laboratory Results - last 24 hr 01/21/18 01/21/18 01/21/18 20:25 20:25 20:25 WBC 8.5 RBC 3.79 L Hgb 9.6 L Hct 29.8 L MCV 78.5 L MCH 25.4 L MCHC 32.3 L RDW 18.2 H Plt Count 346 D MPV Neut % (Auto) Lymph % (Auto) [place] % (Auto) Eos % (Auto) Baso % (Auto) Neut # (Auto) Lymph # (Auto) [place] # (Auto) Eos # (Auto) Baso # (Auto) PT INR APTT Sodium 144 Potassium 3.9 Chloride 104 Carbon Dioxide 22 Anion Gap 22 H BUN 10 Creatinine 0.5 L Est GFR ( Amer) > 60 Est GFR (Non-Af Amer) > 60 Random Glucose 103 Calcium 9.6 Beta HCG, Quant 4.83 Urine Color Urine Clarity Urine pH Ur Specific [place] Urine Protein Urine Glucose (UA) Urine Ketones Urine Blood Urine Nitrate Urine Bilirubin Urine Urobilinogen Ur Leukocyte Esterase Urine RBC (Auto) Urine Microscopic WBC Ur Squamous Epith Cells Urine Bacteria Blood Type Antibody Screen BBK History Checked 01/21/18 01/21/18 01/21/18 20:25 20:25 20:25 WBC RBC Hgb Hct MCV MCH MCHC RDW Plt Count MPV Neut % (Auto) Lymph % (Auto) [place] % (Auto) Eos % (Auto) Baso % (Auto) Neut # (Auto) Lymph # (Auto) [place] # (Auto) Eos # (Auto) Baso # (Auto) PT 12.1 INR 1.1 APTT 30.2 Sodium Potassium Chloride Carbon Dioxide Anion Gap BUN Creatinine Est GFR ( Amer) Est GFR (Non-Af Amer) Random Glucose Calcium Beta HCG, Quant Urine Color Colorless Urine Clarity Clear Urine pH 7.0 Ur Specific [place] < 1.005 Urine Protein Negative Urine Glucose (UA) Neg Urine Ketones Negative Urine Blood Large Urine Nitrate Negative Urine Bilirubin Negative Urine Urobilinogen 0.2-1.0 Ur Leukocyte Esterase Small Urine RBC (Auto) 2 Urine Microscopic WBC 1 Ur Squamous Epith Cells < 1 Urine Bacteria Rare Blood Type A POSITIVE Antibody Screen Negative BBK History Checked Patient has bt 01/22/18 01/22/18 00:32 04:00 WBC 9.2 8.8 RBC 3.88 3.41 L Hgb 9.8 L 8.9 L Hct 30.5 L 26.5 L MCV 78.8 L 77.7 L MCH 25.3 L 26.0 L MCHC 32.1 L 33.5 RDW 18.1 H 18.0 H Plt Count 344 303 MPV 9.0 Neut % (Auto) 51.5 Lymph % (Auto) 39.9 [place] % (Auto) 6.6 Eos % (Auto) 1.5 Baso % (Auto) 0.5 Neut # (Auto) 4.5 Lymph # (Auto) 3.5 [place] # (Auto) 0.6 Eos # (Auto) 0.1 Baso # (Auto) 0.0 PT INR APTT Sodium Potassium Chloride Carbon Dioxide Anion Gap BUN Creatinine Est GFR ( Amer) Est GFR (Non-Af Amer) Random Glucose Calcium Beta HCG, Quant Urine Color Urine Clarity Urine pH Ur Specific [place] Urine Protein Urine Glucose (UA) Urine Ketones Urine Blood Urine Nitrate Urine Bilirubin Urine Urobilinogen Ur Leukocyte Esterase Urine RBC (Auto) Urine Microscopic WBC Ur Squamous Epith Cells Urine Bacteria Blood Type Antibody Screen BBK History Checked Assessment & Plan - Assessment and Plan (Free Text) Plan: With Dr Ledbetter who speaks the patient's language, we discussed her condition with her and her . The management/options discussed and she agreed to D& C/possible hysterscopy. Informed consent obtained - Date & Time Date: 01/22/18 Time: 07:45
[2018-01-22] MEDS ORDERED: Lactated Ringer's 1,000 ML IV SCH ×2 (01:15→15:15)
[2018-01-22 07:01] LABS: BASO % 0.5 % (0.0-2.0); EOS # 0.1 K/uL (0.0-0.7); EOS % 1.5 % (0.0-4.0); HEMOGLOBIN 8.9 g/dL (12.0-16.0); LYMPH # 3.5 K/uL (1.0-4.3); LYMPH % 39.9 % (20.0-40.0); MEAN CELL VOLUME 77.7 fl (81.0-99.0); MEAN CORPUSCULAR HGB CONC 33.5 g/dL (33.0-37.0); MONO # 0.6 K/uL (0.0-0.8); MONO % 6.6 % (0.0-10.0); NEUT # 4.5 K/uL (1.8-7.0); NEUT % 51.5 % (50.0-75.0); NRBC % 0.2 % (0.0-0.0); RBC 3.41 Mil/uL (3.80-5.20); WHITE BLOOD COUNT 8.8 K/uL (4.8-10.8)
[2018-01-22] MEDS ORDERED: ceFAZolin 2 GM in Sodium Chloride 0.9% 100 ML IVPB ONE ×2 (09:00→11:00)
[2018-01-22] MEDS ORDERED: ePHEDrine 50 mg/ml Inj ONE (13:34)
[2018-01-22] MEDS ORDERED: Propofol 10 mg/ml Inj (20 ML) ONE (13:34)
[2018-01-22] MEDS ORDERED: Midazolam 2 MG/2 ML VIAL ONE (13:35)
[2018-01-22] MEDS ORDERED: Lidocaine 4% (Laryng-O-Jet) Kit MM ONE (13:35)
[2018-01-22] MEDS ORDERED: Succinylcholine 200 mg/10 ml Inj IV ONE (13:35)
[2018-01-22] MEDS ORDERED: Lactated Ringer's 1,000 ML IV ONE (14:20)
[2018-01-22] MEDS ORDERED: Dexamethasone 4 mg/1 ml ONE (14:44)
[2018-01-22] MEDS ORDERED: Oxycodone/Acetaminophen 5/325 mg Tab PO PRN (15:02)
--- NOTE | 2018-01-22 15:05 | PCM.SURG1 ---
Surgeon's Initial Post Op Note - Surgeon's Notes Surgeon: Jo Sun DO [employer] Teacher: Dr Roach PGY1 Type of Anesthesia: General Endo Anesthesia Administered By: Dr Rodriguez Pre-Operative Diagnosis: Incomplete Operative Findings: Uterus 8w size; cervix open FT with filmy POC from os; Hysteroscopy - revealed tissue reaching to fundus; Curretting done and POC obtained Post-Operative Diagnosis: as above Operation Performed: EUA; hyseroscopy/D&C Specimen/Specimens Removed: POC Estimated Blood Loss: EBL {In ML}: 25 Blood Products Given: N/A Drains Used: No Drains Post-Op Condition: Good Date of Surgery/Procedure: 01/22/18 Time of Surgery/Procedure: 14:30
[2018-01-22] MEDS ORDERED: DiphenhydrAMINE 50 mg/ml Inj IVP PRN (15:07)
[2018-01-22 15:17] VITALS: RESP 18
--- NOTE | 2018-01-22 16:55 | CP.PCM.DIS ---
Provider - Provider Date of Admission: 01/22/18 00:14 Attending physician: Jarek Sun DO Time Spent in preparation of Discharge (in minutes): 40 Diagnosis - Discharge Diagnosis (1) Uterine bleeding Status: Acute (2) S/P D&C (status post dilation and curettage) Status: Acute (3) Incomplete Status: Acute Hospital Course - Lab Results Lab Results: Most Recent Lab Values WBC 8.8 K/uL (4.8-10.8) 01/22/18 04:00 RBC 3.41 Mil/uL (3.80-5.20) L 01/22/18 04:00 Hgb 8.9 g/dL (12.0-16.0) L 01/22/18 04:00 Hct 26.5 % (34.0-47.0) L 01/22/18 04:00 MCV 77.7 fl (81.0-99.0) L 01/22/18 04:00 MCH 26.0 pg (27.0-31.0) L 01/22/18 04:00 MCHC 33.5 g/dL (33.0-37.0) 01/22/18 04:00 RDW 18.0 % (11.5-14.5) H 01/22/18 04:00 Plt Count 303 K/uL (130-400) 01/22/18 04:00 MPV 9.0 fl (7.2-11.7) 01/22/18 04:00 Neut % (Auto) 51.5 % (50.0-75.0) 01/22/18 04:00 Lymph % (Auto) 39.9 % (20.0-40.0) 01/22/18 04:00 [place] % (Auto) 6.6 % (0.0-10.0) 01/22/18 04:00 Eos % (Auto) 1.5 % (0.0-4.0) 01/22/18 04:00 Baso % (Auto) 0.5 % (0.0-2.0) 01/22/18 04:00 Neut # (Auto) 4.5 K/uL (1.8-7.0) 01/22/18 04:00 Lymph # (Auto) 3.5 K/uL (1.0-4.3) 01/22/18 04:00 [place] # (Auto) 0.6 K/uL (0.0-0.8) 01/22/18 04:00 Eos # (Auto) 0.1 K/uL (0.0-0.7) 01/22/18 04:00 Baso # (Auto) 0.0 K/uL (0.0-0.2) 01/22/18 04:00 PT 12.1 Seconds (9.8-13.1) 01/21/18 20:25 INR 1.1 (0.9-1.2) 01/21/18 20:25 APTT 30.2 Seconds (25.6-37.1) 01/21/18 20:25 Sodium 144 mmol/l (132-148) 01/21/18 20:25 Potassium 3.9 MMOL/L (3.6-5.0) 01/21/18 20:25 Chloride 104 mmol/L (98-107) 01/21/18 20:25 Carbon Dioxide 22 mmol/L (22-30) 01/21/18 20:25 Anion Gap 22 (10-20) H 01/21/18 20:25 BUN 10 mg/dl (7-17) 01/21/18 20:25 Creatinine 0.5 mg/dl (0.7-1.2) L 01/21/18 20:25 Est GFR ( Amer) > 60 01/21/18 20:25 Est GFR (Non-Af Amer) > 60 01/21/18 20:25 Random Glucose 103 mg/dL (65-105) 01/21/18 20: Calcium 9.6 mg/dL (8.4-10.2) 01/21/18 20:25 Beta HCG, Quant 4.83 mIU/mL 01/21/18 20:25 Urine Color Colorless (YELLOW) 01/21/18 20:25 Urine Clarity Clear (Clear) 01/21/18 20: Urine pH 7.0 (5.0-8.0) 01/21/18 20:25 Ur Specific [place] < 1.005 (1.003-1.030) 01/21/18 20:25 Urine Protein Negative mg/dL (NEGATIVE) 01/21/18 20: Urine Glucose (UA) Neg mg/dL (Normal) 01/21/18 20:25 Urine Ketones Negative mg/dL (NEGATIVE) 01/21/18 20:25 Urine Blood Large (NEGATIVE) 01/21/18 20:25 Urine Nitrate Negative (NEGATIVE) 01/21/18 20:25 Urine Bilirubin Negative (NEGATIVE) 01/21/18 20:25 Urine Urobilinogen 0.2-1.0 mg/dL (0.2-1.0) 01/21/18 20:25 Ur Leukocyte Esterase Small [place]/uL (Negative) 01/21/18 20:25 Urine RBC (Auto) 2 /hpf (0-3) 01/21/18 20:25 Urine Microscopic WBC 1 /hpf (0-5) 01/21/18 20:25 Ur Squamous Epith Cells < 1 /hpf (0-5) 01/21/18 20:25 Urine Bacteria Rare (<OCC) 01/21/18 20:25 Blood Type A POSITIVE 01/21/18 20:25 Antibody Screen Negative 01/21/18 20:25 BBK History Checked Patient has bt 01/21/18 20:25 - Hospital Course Hospital Course: 32 YO with hx of recent SAB at approximately 11 wks IUP (by LMP 09/20/17). Since her SAB, patient continued to have vaginal bleeding; hx of recent admission to the hospital, s/p cytotech with improvement of the VB but bleeding returned 12 hrs after discharge. Patient was admitted this time for D&C of retained intrauterine tissue. D&C was performed today under general anaesthesia and retained placental tissue was removed. Patient was seen and examined after D &C. All the questions were answered and patient agrees with discharge plan. Discharge Exam - Head Exam Head Exam: ATRAUMATIC, NORMOCEPHALIC - Eye Exam Eye Exam: Normal appearance Pupil Exam: NORMAL ACCOMODATION - Respiratory Exam Respiratory Exam: Clear to PA & Lateral - Cardiovascular Exam Cardiovascular Exam: REGULAR RHYTHM - GI/Abdominal Exam GI & Abdominal Exam: Normal Bowel Sounds, Soft. absent: Rebound, Rigid, Tenderness - Extremities Exam Extremities exam: normal capillary refill - Back Exam Back exam: NORMAL INSPECTION - Neurological Exam Neurological exam: Alert, Oriented x3 - Psychiatric Exam Psychiatric exam: Normal Affect, Normal Mood - Skin Skin Exam: Dry, Intact, Normal Color, Warm Discharge Plan - Discharge Medications Prescriptions: Ibuprofen [Motrin Tab] 600 mg PO Q6 PRN #30 tab PRN Reason: Constipation - Follow Up Plan Condition: FAIR Disposition: HOME/ ROUTINE Instructions: Miscarriage (DC), Dilation and Curettage (D and C) Additional Instructions: follow up with DIRECTOR OF INFORMATICS, Dr. Grijalva on February 06 at 1:00 PM. Referrals: Jarek Sun DO [Staff Provider] - Cherise Ortega MD [Family Provider] -
[2018-01-22 18:17] VITALS: BP 115/73; PULSE 82; TEMP 98.1
--- NOTE | 2018-01-24 08:41 | OP ---
PROCEDURE DATE: 01/22/2018 PREOPERATIVE DIAGNOSIS: Incomplete . POSTOPERATIVE DIAGNOSIS: Incomplete . OPERATIVE PERFORMED: Exam under anesthesia, hysteroscopy, dilatation and curettage. SURGEON: Jarek Sun DO MANAGER CARDIOVASCULAR: Dr. Roach, PGY1. ANESTHESIOLOGIST: Joanne Rodriguez MD TYPE OF ANESTHESIA: General endotracheal. OPERATIVE FINDINGS: Uterus approximately 8 weeks in size. Cervix is open finger tip with some filmy products of conception noted. Hysteroscopy revealed products of conception going from the endocervix into the cervical canal, into the fundus. Curetting was performed, products of conception were obtained. SPECIMENS: Products of conception. ESTIMATED BLOOD LOSS: 25 mL. No blood products. DRAINS: No drains. POSTOP CONDITION: Good. DESCRIPTION OF PROCEDURE: David was brought to the operating room. She had been given IV antibiotics. She was placed in supine position. After successful induction of general anesthesia, she was placed in lithotomy position. She was then draped and prepped in the usual sterile manner. A catheter was used to drain the bladder with contents. Exam under anesthesia was performed, above findings noted. A weighted speculum was placed in the posterior fornix of the vagina, right angle retractor in the anterior fornix of the vagina to visualize the cervix. The cervix was grasped at 2 o'clock position using a ring forceps. Thereafter, using dilators, it was gradually dilated. A MyoSure hysteroscope was then introduced (5 mm scope was unavailable) into the endocervix and into the endometrium. Upon visualization, I was able to identify both ostia. There was a large amount of tissue in that went from the cervix into the endocervix and all the way to the fundus. This was identified up to the left fundal area. Hysteroscope was removed using ovum forceps. Attempt was made to grasp tissue. Curetting was performed using a medium size curette. Hysteroscope was then reintroduced into the endocervical canal into the uterus and there was still small amount of tissue left. Again hysteroscope was removed. Curetting was performed. Hysteroscope was reintroduced and the tissue was removed satisfactory for her condition. She was given IM Methergine 0.2 mg. All equipments were removed to accounted for. Specimens included products of conception. She was successfully from general anesthesia and brought to the recovery room in stable condition. Total fluids for the hysteroscopy were 3000 mL in and 2000 mL out and then up to 2500 mL out deficit of 500. She was brought to the recovery room in stable condition. She is scheduled to follow up at the [facility] in 2[facility]3 weeks. She will be given appointment by Dr. Roach. She was given Motrin 600 mg p.o. every 6 hours p.r.n. for pain. Jarek Sun DO
== END 2018-01-22 19:20 | disposition home or self-care (01) | DRG 381 ==
LOC: H.ER 17:03 → H.ERHOLD 01-22 00:14 → H.MEDSURG1 01-22 01:25
PROVIDERS: ADMIT Obstetrics & Gynecology; ATTEND Obstetrics & Gynecology
PROC: 10D18ZZ Extraction of Products of Conception, Retained, Via Natural or Artificial Opening Endoscopic (ICD-10-PCS; principal; 2018-01-22 10:00)
DX: O03.4 Incomplete spontaneous abortion without complication (principal)